=== PATIENT | male | born 1935 | race Two or more races ===

== ENCOUNTER → 2016-07-11 | Day surgery (SDC) | payer MEDICARE, MEDICAID ==
--- NOTE | 2016-07-07 10:36 | Pre-Procedure Note/Attestation ---
Pre-Procedure Note/Attestation Complete Prior to Procedure Planned Procedure: left Procedure Narrative: phaco with IOL Indications for Procedure Pre-Operative Diagnosis: cataract Attestation I attest that I discussed the nature of the procedure; its benefits; risks and complications; and alternatives (and the risks and benefits of such alternatives ), prior to the procedure, with the patient (or the patient's legal junior sales representative). I attest that, if there was a reasonable possibility of needing a blood transfusion, the patient (or the patient's legal junior sales representative) was given the [facility] standardized written summary, pursuant to the [place] Blood Safety Act ([place] Health and Safety Code # 1645, as amended). I attest that I re-evaluated the patient just prior to the surgery and that there has been no change in the patient's H&P, except as documented below: MONROE DELUCA Jul 07, 2016 10:36
--- NOTE | 2016-07-07 10:37 | Opthalmology H&P ---
Ophthalmology H&P H&P Chief Complaint: decreased vision in left eye HPI Vision Affects Ability to: read, focus/use eyes together, manage personal affairs HPI Narrative blurry vision Exam Visual Acuity: OD: 20/40 OS: 20/80 Tension: OD: 16 OS: 16 Eye Exam: normal OU: anterior chambers, corneas, external exam, fundus exam, levator function, marginal reflex distance, palpebral fissure-width, findings: lens - OD: ns OS: ns Assessment/Plan Diagnosis: (1) Cataract Treatment Plan: cataract extraction w/ lens implant Goals of Treatment: improvement of vision, enhance quality of life Attestation Attestation The risks and benefits of the surgery as well as alternative procedures were explained to the patient in detail. MONROE DELUCA Jul 07, 2016 10:37
[2016-07-11] VITALS (10 sets, daily range): BP systolic 122–152; BP diastolic 68–82
[~2016-07-11] VITALS: Ht 175.3 cm; Wt 69.4 kg
[~2016-07-11] MED LIST: ATORVASTATIN CA20 MG ORAL; Akten 3.5% 1ml Btl LEFT EYE ONE; BSS 15ml BTL ONE; BSS 500ml btl ONE; Carbachol 0.01% Op Soln 1.5ml vial ONE; DONEPEZIL HCL10 MG ORAL; Dexamethasone 4mg/ml vial ONE; EPINEPHrine 1mg/1ml Amp ONE; LR 1000ml ONE; Lidocaine 4% Amp ONE; MELATONIN10 M3 ORAL; METFORMIN HCL500 M1 ORAL; Maxitrol Opth Oint 3.5gm ONE; Midazolam 2mg/2ml Inj ONE; NS Irrig 1000ml ONE; NUPLAZID17 MG PO; PROSCAR5 MG ORAL; Povidone-Iodine 5% opth solution ONE; Pred Forte 1% Opth Susp 1ml ONE; RASAGILINE MESYL1 MG PO; SINEMET 25/2501 E1 ORAL; Sodium Hyaluronate 14 mg/ml 0.85ml ONE; Sterile Water Irrig 1000ml IRRIG ONE; TAMSULOSIN HCL0.4 MG ORAL; Tetracaine 0.5% Opth Soln ONE; Tobramycin Op Soln 0.3% LEFT EYE ONE; acetaZOLAMIDE 500mg Inj ONE
[2016-07-11] MEDS: Phenylephrine 2.5% Op Soln LEFT EYE SCH ×3 (10:15→10:32)
[2016-07-11] MEDS: Cyclopentolate 1% Opth Sol LEFT EYE SCH ×3 (10:15→10:32)
[2016-07-11] MEDS: Diclofenac Sod 0.1% Op Soln LEFT EYE SCH ×3 (10:15→10:32)
[2016-07-11] MEDS: Tropicamide 1% Opth Soln LEFT EYE SCH ×3 (10:16→10:32)
--- NOTE | 2016-07-11 11:15 | Anethesia Preoperative Eval ---
Anesthesia Pre-op PMH/ROS General Date of Evaluation: Jul 11, 2016 Time of Evaluation: 11:13 Anesthesiologist: Izabel ASA Score: ASA 3 Mallampati Score Class I : Soft palate, uvula, fauces, pillars visible Class II: Soft palate, uvula, fauces visible Class III: Soft palate, base of uvula visible Class IV: Only hard plate visible Mallampati Classification: Class III Surgeon: rima Diagnosis: cataract Surgical Procedure: cataract extraction left eye Anesthesia History: none Family History: no anesthesia problems Allergies: Coded Allergies: No Known Allergies (Unverified , 07/07/16) Medications: see eMAR Past Medical History Cardiovascular: Reports: HTN Pulmonary: Denies: COPD, DOUG, asthma, other Gastrointestinal/Genitourinary: Reports: other - BPH Neurologic/Psychiatric: Reports: dementia, other - parkinsons Endocrine: Reports: DM HEENT: Reports: cataract (L) Hematology/Immune: Denies: DVT, anemia, bleeding disorder, other Musculoskeletal/Integumentary: Denies: DDD, DJD, OA, RA, edema, other PSxH Narrative: denies Anesthesia Pre-op Phys. Exam Physician Exam Last Vital Signs Date Time Temp Pulse Resp B/P Pulse Ox O2 Delivery O2 Flow Rate FiO2 07/11/16 10:21 97.8 72 18 122/69 99 Room Air Constitutional: NAD Neurologic: CN 2-12 intact Cardiovascular: RRR Respiratory: CTA Airway Exam Mallampati Classification 3 Mallampati Score: Class III MO: limited Dentures: no lower, no upper Anesthesia Pre-op A/P Studies Pre-op Studies: EKG - sr Risk Assessment & Plan Assessment: oriented; denies cp/sob Plan: mac Status Change Before Surgery: No Pre-Antibiotics Drug: none JOSE BUITRAGO [employer] Jul 11, 2016 11:15
--- NOTE | 2016-07-11 11:52 | Immediate Post-Op Evaluation ---
Immediate Post-Op Evalulation Immediate Post-Op Evalulation Procedure: cataract extraction left eye Date of Evaluation: Jul 11, 2016 Time of Evaluation: 11:50 IV Fluids: 300 Blood Pressure Systolic: 144 Blood Pressure Diastolic: 79 Pulse Rate: 70 Respiratory Rate: 14 O2 Sat by Pulse Oximetry: 100 Temperature (Fahrenheit): 97.5 Nausea: No Vomiting: No Complications none Patient Status: reacts, patent Drug: none TARRILLIONJOSE CRNA Jul 11, 2016 11:52
--- NOTE | 2016-07-11 11:57 | 48 Hour Post Anesthesia Eval ---
Post Anesthesia Evaluation Procedure: cataract extraction left eye Date of Evaluation: Jul 11, 2016 Time of Evaluation: 11:56 Blood Pressure Systolic: 144 0: 75 Pulse Rate: 69 Respiratory Rate: 14 O2 Sat by Pulse Oximetry: 98 Airway: patent Nausea: No Vomiting: No Hydration Status: adequate Cardiopulmonary Status: normal Mental Status/LOC: patient returned to baseline Post-Anesthesia Complications: none Follow-up care needed: N/A OJSE BUITRAGO CRNA Jul 11, 2016 11:57
--- NOTE | 2016-07-11 15:01 | Brief Operative Note ---
Immediate Post Operative Note Operative Note Chief Complaint: blurry vision Pre-op Diagnosis: cataract, OS Procedure: Phaco with IOL, OS Post-op Diagnosis: Pseudophakia, OS Post-op Diagnosis: same as pre-op Findings: consistent w/pre-op dx studies Surgeon: Sienna Anesthesiologist: Izabel Anesthesia: MAC Specimen: none Complications: none Condition: stable Estimated Blood Loss: none Drains: none Implant(s) used?: Yes MONROE DELUCA Jul 11, 2016 15:01
--- NOTE | 2016-07-11 15:48 | Operative Note - PDOC ---
Operative Note Operative Note Date of Operation/Procedure: Jul 11, 2016 Chief Complaint: blurry vision Pre-op Diagnosis: cataract, OS Procedure: Phaco with IOL, OS Post-op Diagnosis: Pseudophakia, OS Post-op Diagnosis: same as pre-op Operative Findings: consistent w/pre-op dx studies Surgeon: Sienna Anesthesiologist: Izabel Anesthesia: MAC Specimen: none Complications: none Condition: stable Estimated Blood Loss: none Drains: none Implant(s) used?: Yes Indications for Procedure cataract Description of Procedure This patient has been complaining visually significant cataract in the affected eye with the best corrected visual acuity under moderate glare conditions worse. The patient complains of difficulties with glare in performing activities of daily living and wants to manage personal affairs with comfort and accuracy and see well enough to move with safety at home and outdoors. ~~~ The risks, benefits and alternatives of the procedure were discussed with the patient in the office prior to scheduling surgery. All questions from the patient were answered after the surgical procedure was explained in detail. The risks of the procedure as explained to the patient include, but are not limited to, pain, infection, bleeding, loss of vision, retinal detachment, need for further surgery, loss of lens nucleus, double vision, etc. Alternative procedures were discussed which include, to do nothing or seek a second opinion. Informed consent for this procedure was obtained from the patient. The patient was referred to a primary care physician for a cardiopulmonary clearance prior to surgery, after proper evaluation was done patient was properly scheduled for outpatient surgery. The patient was brought to the operating room where the anesthesiologist established I.V. lines and cardiac monitoring leads. Mild intravenous sedation was administered.~~ The patient was then prepared with a 5% solution of povidone -iodine to the conjunctival fornix and lashes, and a 10% solution of povidone- iodine to the lids and periorbital skin. The patient was then draped in the usual sterile fashion. A lid speculum was then placed in the operative eye. A keratome blade was then used to create a biplanar incision into the anterior chamber. Viscoelastics was then instilled into the anterior chamber. A capsulorrhexis was then fashioned with an utrata forceps then hydrodissection and hydro delineation of the lens nucleus. Paracentesis incision was made at 3 o'clock with sharp blade. The phacoemulsification unit, after being properly adjusted~ and tested, was then used to emulsify the nucleus followed by aspiration and irrigation of residual corticala material. Healon was then instilled into the anterior chamber. The corneal wound was then enlarged to the size of the optic with the viv keratome blade. The intraocular lens was then inspected for right~ power and size~ and thought to be satisfactory. Then the lens was gently placed in the capsular bag. Positioning within the capsular bag was confirmed by direct visualization. Optic centration was accomplished with a Sinskey hook. Viscoelastics~ was removed from the anterior chamber using the irrigation and aspiration unit. The corneal wound was then tested for leaks and none were found. The lid speculum were then removed. Sponge and needle counts were correct. An eye patch and shield were placed over the operative eye. The patient was taken to the recovery room in stable condition. There were no complications. The patient tolerated the procedure well. The patient was then transferred to the ambulatory surgery unit in stable and satisfactory condition , was given detailed written instructions and asked to follow up~ in the office the next day. ~ ~ Dictated & Transcribed: [facility] Kaila KINSEY JAMES Jul 11, 2016 15:48
== END | disposition home or self-care (01) ==
LOC: SUR 08:24
DX: H26.9 Unspecified cataract (principal); E11.22 Type 2 diabetes mellitus with diabetic chronic kidney disease; N18.3 Chronic kidney disease, stage 3 (moderate); Z79.84 Long term (current) use of oral hypoglycemic drugs; E78.00 Pure hypercholesterolemia, unspecified; K58.9 Irritable bowel syndrome, unspecified; N40.0 Benign prostatic hyperplasia without lower urinary tract symptoms; G20 Parkinson's disease; F02.80 Dementia in other diseases classified elsewhere, unspecified severity, without behavioral disturbance, psychotic disturbance, mood disturbance, and anxiety; I95.1 Orthostatic hypotension; K21.9 Gastro-esophageal reflux disease without esophagitis; R13.10 Dysphagia, unspecified; R60.9 Edema, unspecified; K59.00 Constipation, unspecified; E55.9 Vitamin D deficiency, unspecified
CPT/HCPCS: 66984; 82962; J0171; J1100; J2250; J3370; J7120; V2632; 94003; 94150